=== PATIENT | female | born 1995 | race Caucasian/White ===

== ENCOUNTER 2017-11-30 21:38 | Emergency (ER) | payer BC ==
[2017-11-30] MEDS ORDERED: Lactated Ringers 1,000 ML IV SCH (22:00)
[2017-11-30] MEDS ORDERED: LORazepam 2 MG/ML SDV IVPUSH ONE (22:05)
[2017-11-30] MEDS ORDERED: Ondansetron 4 MG/2 ML SDV IVPUSH ONE (22:05)
[2017-11-30 23:12] VITALS: BP 126/70
--- NOTE | 2017-12-01 04:46 | ER ---
DATE SEEN: 11/30/2017 TIME SEEN: 2200 hours. CHIEF COMPLAINT: Vomiting. HISTORY OF PRESENT ILLNESS: This is a 22-year-old female with vomiting. Vomiting has been there for approximately 6 hours, started suddenly at 1700 hours. No abdominal pain. No constipation or diarrhea. PAST SURGICAL HISTORY: Gallbladder surgery. PAST MEDICAL HISTORY: She has had these episodes of vomiting from time to time. ALLERGIES: None. PHYSICAL EXAMINATION: GENERAL: She is not in distress, pale. VITAL SIGNS: Blood pressure is 151/73, afebrile. ENT: Negative. CHEST: Clear. ABDOMEN: Soft and benign. LABORATORY DATA: Pending. IMPRESSION: Periodic cyclic vomiting. PLAN: 1 L of normal saline, IV Zofran and lorazepam. The patient is advised to follow up with Janette Oconnell next week. /[id number] COMOFRT/BOBBY
== END 2017-11-30 23:10 | disposition home or self-care (01) ==
LOC: FB.ED 21:38
DX: G43.A0 Cyclical vomiting, in migraine, not intractable (principal); Z98.890 Other specified postprocedural states; Z90.49 Acquired absence of other specified parts of digestive tract
CPT/HCPCS: 36415; 80048; 84702; 85025; 96361; 96374; 96375; 99283; J2060; J2405; J7120